=== PATIENT | female | born 2000 | race African-American/Black ===

== ENCOUNTER 2025-04-06 12:27 | Outpatient (OUT) | payer OTHER, MEDICAID, SELFPAY ==
--- NOTE | 2025-04-06 | US_ITS ---
The [address] [address] Patient Name: CHUY HAMILTON MRN: [id number] date: 2000 Sex: U Assigned Patient Location: Current Patient Location: Accession/Order Number: [id number] Exam Date: 04/06/2025 12:43 Report Date: 04/06/2025 13:20 At the request of: TYLER PETER MD Procedure: US pelvis w/ transvaginal EXAMINATION TYPE: US pelvis w/ transvaginal Grayscale, color scale Doppler, vascular duplex analysis of the bilateral ovaries DATE OF EXAM ORDERED: 04/06/2025 1:13 PM HISTORY: PELVIC PAIN R10.2, irregular menses COMPARISON: NONE TECHNIQUE: Realtime Transvaginal and Transabdominal imaging was performed. Transvaginal imaging was utilized to better evaluate the ovaries and the endometrial stripe. Grayscale, color scale Doppler, vascular duplex analysis of the bilateral ovaries was performed to assess blood flow. FINDINGS: The uterus measures 9.8 x 4.2 x 5.2 cm. The uterus is normal in echogenicity. Nabothian cysts are noted in the cervix measuring up to 6 mm in greatest dimension. Endometrium: Normal thickness and appearance. The endometrial measures 9 mm in thickness. Ovaries: The visualized right ovary is within normal limits for songraphic evaluation. There is a 2.3 cm dominant follicle in the right ovary. The left ovary is not visualized. Right Ovary measurements: 3.5 x 3.3 x 2.1 cm No abnormal adnexal mass is seen. No free fluid in the pelvic cul-de-sac. Vascular duplex analysis of the right ovary demonstrates normal blood flow without evidence of ovarian ischemia. US/US pelvis w/ transvaginal IMPRESSION: Normal pelvic ultrasound. No evidence of ovarian ischemia. The left ovary is not visualized. Impression dictated by: Marlon Phoenix M.D. 04/06/2025 1:20 PM Dictation Location: [place] [address] Electronically authenticated by: [id number] Y Date: 04/06/2025 13:20
== END 2025-04-06 12:28 | disposition home or self-care (01) ==
PROVIDERS: PCP Family Medicine; Visit Provider Family Medicine
DX: R10.9 Unspecified abdominal pain (principal); R10.2 Pelvic and perineal pain
CPT/HCPCS: 76830; 76856

== ENCOUNTER 2025-04-13 10:03 | Outpatient (OUT) | payer OTHER, MEDICAID, SELFPAY ==
--- OUTSIDE RECORDS SUMMARY | 2024-11-27 16:35 | XMS_ITS ---
Author Organization The [facility] in [place] Address [address] [place] [address] Care Team Providers Care Dial Screw Assembler Name Role Phone Tra Vigil Primary Care Provider REASON FOR VISIT Lab Results- Encounters Encounter Location Date Provider Diagnosis [facility] [address] [place] [address] 11/27/2024 Tra Vigil Plan Of Treatment No Information Progress Notes * Saroj TORRESOB:2000 (24 yo F)Acc No.[id number]:11/27/2024 Patient: Chris HEIKEAna Maria GONZALEZ :2000 A ge:24 Y S ex:Female Address:[address], [address], [place], [address] * true * Date: Generated for Melodyi irvin/Jordyg/eTransmitting on: 0 04/13/2025 10:05 AM EDT
--- OUTSIDE RECORDS SUMMARY | 2024-11-28 15:56 | XMS_ITS ---
Author Organization The [facility] in [place] Address [address] [place] [address] Care Team Providers Care Field Support Engineer Name Role Phone Tra Vigil Primary Care Provider REASON FOR VISIT labs Problems Problem Type SNOMED Code ICD Code Onset Dates Problem Status W/U Status Risk Notes Problem Laboratory test result abnormal (825314673) Abnormal laboratory test (R89.9) Active confirmed Encounters Encounter Location Date Provider Diagnosis [facility] [place] [address] [place] [address] 11/28/2024 Tra Vigil Abnormal laboratory test R89.9 Assessments Encounter Date Diagnosis (ICD Code) Assessment Notes Treatment Notes Treatment Clinical Notes Section Notes 11/28/2024 Abnormal laboratory test (ICD-10 - R89.9) Plan Of Treatment Pending Test Test Name Order Date GLYCOHEMOGLOBIN A1C 11/28/2024 INSULIN 11/28/2024 Progress Notes * DIPAKCHERIE Luis MiguelJenniOB:2000 (24 yo F)Acc No.[id number]:11/28/2024 Patient: Ana Maria WISEMNA :2000 A ge:24 Y S ex:Female Address:[address], [place], [address] Subjective: * Chief Complaints: * L abs * Medical History: * Surgical History: * Hospitalization/Major Diagno stic Procedure: * Medications: Objective: * Vitals: * Physical Examination: Assessment: * Assessment: 1. A bnormal laboratory test - R89.9 (Primary) Plan: * Treatment: * Procedure Codes: * true * Date: Generated for Clare bryan/Wanda/Adnie on: 0 04/13/2025 10:05 AM EDT
--- OUTSIDE RECORDS SUMMARY | 2024-12-05 06:23 | XMS_ITS ---
Author Organization The [facility] in [place] Address [address] [place] [address] Care Team Providers Care Continuous Linter Drier Operator Name Role Phone Musa Tra Primary Care Provider [phone] REASON FOR VISIT Lab questions Encounters Encounter Location Date Provider Diagnosis [facility] [address] [place] [address] 12/05/2024 Tra Vigil Abnormal laboratory test R89.9 Assessments Encounter Date Diagnosis (ICD Code) Assessment Notes Treatment Notes Treatment Clinical Notes Section Notes 12/05/2024 Abnormal laboratory test (ICD-10 - R89.9) Plan Of Treatment Pending Test Test Name Order Date CBC W/AUTO DIFF 12/05/2024 Progress Notes * Saroj TORRESOB:2000 (24 yo F)Acc No.[id number]:12/05/2024 Patient: Ana Maria WISEMAN :2000 A ge:24 Y S ex:Female Address:[facility] [address], [place], [address] Subjective: * Chief Complaints: * L ab questions * Medical History: * Surgical History: * Hospitalization/Major Diagno stic Procedure: * Medications: Objective: * Vitals: * Physical Examination: Assessment: * Assessment: 1. A bnormal laboratory test - R89.9 (Primary) Plan: * Treatment: * Procedure Codes: * true * Date: Generated for Printi ng/Faxing/eTransmitting on: 0 04/13/2025 10:05 AM EDT
--- OUTSIDE RECORDS SUMMARY | 2025-03-22 09:45 | XMS_ITS ---
Author Organization The [facility] in [place] Address [address] [place] [address] Care Team Providers Care Route Sales Trainee Name Role Phone Tra Vigil Primary Care Provider Allergies No Known Allergies REASON FOR VISIT menstrual issues, abdominal pain, ER last tuesday stomach pain, wants to see if there is any testing, menstration has been off late will be light last 2-3 days, hands and feet will go numb at times Medications Medication SIG (Take, Route, Frequency, Duration) Notes Start Date End Date Status Escitalopram Oxalate 10 MG Oral for 30 Days Active 27-1 MG 1 tablet Orally Once a day Active Magnesium Glycinate 100 MG as directed Orally Dosage Unknown Active Pristiq 50 MG 1 tablet Orally Once a day for 30 days 11/21/2024 Active Vitamin D3 10 MCG (400 UNIT) TAKE TWO CAPSULES BY MOUTH ONCE DAILY Oral for 30 Days Active Protonix 40 MG 1 tablet Orally Once a day for 30 days 11/21/2024 Active Abilify 2 MG 1 tablet Orally Once a day for 30 day(s) 11/21/2024 Active Social History Tobacco Use: Social History Observation Description Date Details (start date - stop date) Former Smoker NA - NA Tobacco Control (Standard) Question Answer Notes Tobacco use: Former smoker How long has it been since you last smoked? 3-6 months Problems Problem Type SNOMED Code ICD Code Onset Dates Problem Status W/U Status Risk Notes Problem Abdominal pain (30169666) Abdominal pain (R10.9) Active confirmed Problem Pain in pelvis (01610373) Pelvic pain (R10.2) Active confirmed Vital Signs Weight 249.0 lbs 03/22/2025 Height 62 in 03/22/2025 Blood pressure systolic 102 mm Hg 03/22/20 25 Blood pressure diastolic 66 mm Hg 025 BMI 45.54 kg/m2 03/22/2025 Encounters Encounter Location Date Provider Diagnosis [facility] [address] [place] [address] 03/22/2025 Tra Vigil Abdominal pain R10.9 and Pelvic pain R10.2 Assessments Encounter Date Diagnosis (ICD Code) Assessment Notes Treatment Notes Treatment Clinical Notes Section Notes 03/22/2025 Abdominal pain (ICD-10 - R10.9) 03/22/2025 Pelvic pain (ICD-10 - R10.2) Plan Of Treatment Medication Medication Name Sig Start Date Stop Date Notes Protonix 40 MG 1 tablet Orally Once a day for 30 days 11/06 Pending Test Test Name Order Date HEMOGLOBIN A1C (GLYCO) 03/22/2025 IRON, TOTAL 03/22/2025 LIPID PANEL (CHOL/TRIG/HDL/LDL) 03/22/20 25 Insulin Level 03/22/2025 FSH+LH+Prog+E2 03/22/2025 US ABD 03/22/2025 US PELVIS AND TRANSVAG 03/22/2025 THYROID PANEL (T4/TSH/FREE T3) CMP (COMP MET JONES) w/eGFR CKD-EPI 2024 CBC WITH DIFF 03/22/2025 Progress Notes * Saroj HAMILTONOB:2000 (24 yo F)Acc No.[id number]:03/22/2025 Progress Note Patient: Ana Maria WISEMAN Provider: Taz Vigil ([facility])MD :2000 A ge:24 Y S ex:Female Date:03/22/2025 Address[facility] [place] [id number] Check In:01:38 PM ESTCheck O ut:02:31 PM EST Subjective: * Chief Complaints: * 1 . Menstrual issues, abdominal pain. 2. ER last tuesday stomach pain. 3. Wants to see if there is any testing. 4. Menstration has been off late will be light last 2-3 days. 5. Hands and feet will go numb at times. 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 * ROS: E ENT: hearing changes d enies. v isual changes d enies.?non-healing mouth sores d enies. s wollen glands or neck lumps d enies. h oarseness d enies. s ore throat d enies. d ifficulty swallowing d enies. n ose bleeds d enies. n crissy congestion d enies. e ar ache d enies. e ar discharge?denies. r inging in ears d enies. l ight sensitivity d enies. e ye pain d enies. b lurring d enies. e ye irritation d enies. d ouble vision d enies.?vision loss d enies. G eneral/Constitutional: Sweats: D enies. F atigue d enies. S leep problems d enies. A norexia d enies. M alaise d enies. W eight loss d enies.?Fatigue or Weakness d enies. F ever or Chills d enies. C ardiovascular: Shortness of Breath w/lying flat d enies. L ightheadedness/dizziness d enies. C hest tightness/ heavy pressure d enies. S welling of legs, ankles, or feet d enies. W aking up with shortness of breath d enies. C hest pain denies. P alpitations d enies. W eight gain d enies. R espiratory: Chronic or frequent cough d enies. C oughing up blood?denies. D ifficulty breathing d enies. P roductive cough d enies. S noring?denies. S hortness of breath that awakens from sleep (PND) d enies. C hest pain d enies. S putum production d enies. W heezing d enies. M usculoskeletal: Joint pain d enies. J oint Fluid d enies. B ack pain d enies. K nee pain d enies. N polly pain d enies. J oint Stiffness d enies. M uscle cramps d enies. W eakness of muscles d enies. A rthritis d enies. M uscle aches d enies. P ain in shoulder(s) d enies. S wollen joints d enies. * Active Problem List F41.9 Anxiety Modified On:11/21/2024 Status:confirmed F32.9 Depression Modified On:11/21/2024 Status:confirmed Z00.00 Well adult Modified On:11/21/2024 Status:confirmed R06.83 Snoring Modified On:11/21/2024 Status:confirmed R20.2 Paresthesia Modified On:11/21/2024 Status:confirmed R89.9 Abnormal laboratory test Modified On:11/29/2024 Status:confirmed R10.9 Abdominal pain Modified On:03/22/2025 Status:confirmed R10.2 Pelvic pain Modified On:03/22/2025 Status:confirmed * Medical History: A nxiety, Depression. * Surgical History: D enies Past Surgical History. * Hospitalization/Major Diagno stic Procedure: D enies Past Hospitalization. * Family History: F ather: , Cerebral vascular accident, diagnosed with Unspecified heart disease, Unspecified essential hypertension. M other: alive, thyroid disease. B rother(s): alive, Heart Attack, diagnosed with Unspecified heart disease. S ister(s): alive. S on(s): alive. 4 brother(s) , 2 sister(s) - healthy. . * Social History: T obacco Use: T obacco Control (Standard) T obacco use: F ormer smoker H ow long has it been since you last smoked??3-6 months * Medications: T aking Abilify(ARIPiprazole) 2 MG Tablet 1 tablet Orally Once a day , Taking Escitalopram Oxalate 10 MG Tablet Oral , Taking Magnesium Glycinate 100 MG Capsule as directed Orally , Notes to Pharmacist: Dosage Unknown, Taking ( Vit-Fe Fumarate-FA) 27-1 MG Tablet 1 tablet Orally Once a day , Taking Pristiq(Desvenlafaxine Succinate ER) 50 MG Tablet Extended Release 24 Hour 1 tablet Orally Once a day , Taking Protonix(Pantoprazole Sodium) 40 MG Tablet Delayed Release 1 tablet Orally Once a day , Taking Vitamin D3 10 MCG (400 UNIT) Capsule TAKE TWO CAPSULES BY MOUTH ONCE DAILY Oral , Discontinued busPIRone HCl 10 MG Tablet TAKE ONE TABLET BY MOUTH TWICE DAILY (UPON AWAKENING AND AT 5-6PM) Oral , Medication List reviewed and reconciled with the patient * Allergies: N .K.D.A. Objective: * Vitals: W t:249.0lbs, Ht: 62 in, BP:102/66mm Hg, BMI:45.54Index, Ht-cm: 157.48 cm, Wt-k.95 kg. * Examination: P hysical Exam: GENERAL: w ell developed, well nourished, in no acute distress. HEAD: n ormocephalic/atraumatic. EYES: p upils equal, round and reactive to light, conjunctivae and sclerae normal. EARS: n o deformity or lesion of external ear, canals and TM appear normal bilaterally, TM's intact, not inflamed with normal light reflex, hearing grossly normal to conversational speech. NOSE: n o deformity, discharge, inflammation, or lesions.? MOUTH: m ucous membranes moist, normal oropharynx and posterior pharynx without lesions or exudates, tongue normal, dentition normal. NECK: n polly supple, no masses or palpable cervical nodes, trachea midline, thyroid without nodules, masses, tenderness, or enlargement. CHEST: n o chest wall deformity, no chest wall tenderness.? LUNGS: n ormal respiratory effort and clear to auscultation, no wheezes, rales, or rhonchi, good air exchange. CARDIO: r egular rate and rhythm, normal S1 and S2, nor murmur, rub, or gallop. PULSES: n ormal capillary refill. ABDOMEN: s oft, non-distended, non-tender, no masses. MUSCULOSKELETAL: n o deformity or scoliosis noted, normal range of motion, joints normal, no erythema, edema, effusion, or ecchymosis. EXTREMITY: n o clubbing, cyanosis, edema, or deformity with normal ROM in both upper and lower bilateral extremities. NEUROLOGIC: g rossly normal. SKIN: n o rashes, ulcerations, or suspicious lesions. LYMPH NODES: n o cervical adenopathy, nodes normal. MENTAL STATUS: a lert and oriented x3, normal mood and affect. Assessment: * Assessment: 1. A bdominal pain - R10.9 (Primary) 2 . P elvic pain - R10.2 ? Plan: * Treatment: ?Imaging: US PELVIS AND TRANSVAG* attn utuerus, ovaries 2.?Pelvic pain?LAB: FSH+LH+Prog+E2 ?Imaging: US ABD* Attn liver, gallplacddeer pa ncreas kidneys ?Imaging: US PELVIS AND TRANSVAG* attn utuerus, ovaries * Preventive Medicine: Screenings/Counseling: B MN ACTION PLAN Above Normal BMI Follow-up D ietary management education, guidance, and counseling * * Sign off status: Completed Visit Status: C HK (Check Out) true * Provider: Taz Vigil ([facility])MD Date: 0 03/22/2025 Generated for Printi ng/Faxing/eTransmitting on: 0 04/13/2025 10:05 AM EDT History and Physical Notes * HPI (History of Present Illness) Category Sub-Category Detail Notes Category Not es General periods - ligfhtere - 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 be 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 stil with pain - some constipation Examination Category Sub-Category Detail Notes Category Not es Physical Exam GENERAL: well developed, well nourished, in no acute distress HEAD: normocephalic/atraum atic EYES: pupils equal, round and reactive to light, conjunctivae and sclerae normal EARS: no deformity or lesi on of external ear, canals and TM appear normal bilaterally, TM's intact, not inflamed with normal light reflex, hearing grossly normal to conversational speech NOSE: no deformity, discha rge, inflammation, or lesions MOUTH: mucous membranes yvonne st, normal oropharynx and posterior pharynx without lesions or exudates, tongue normal, dentition normal NECK: neck supple, no mass es or palpable cervical nodes, trachea midline, thyroid without nodules, masses, tenderness, or enlargement CHEST: no chest wall deform ity, no chest wall tenderness LUNGS: normal respiratory e ffort and clear to auscultation, no wheezes, rales, or rhonchi, good air exchange CARDIO: regular rate and rhy thm, normal S1 and S2, nor murmur, rub, or gallop PULSES: normal capillary ref ill ABDOMEN: soft, non-distended, non-tender, no masses RECTAL: MUSCULOSKELETAL: no deformity or scol iosis noted, normal range of motion, joints normal, no erythema, edema, effusion, or ecchymosis EXTREMITY: no clubbing, cyanosi s, edema, or deformity with normal ROM in both upper and lower bilateral extremities NEUROLOGIC: grossly normal SKIN: no rashes, ulceratio ns, or suspicious lesions LYMPH NODES: no cervical adenopat hy, nodes normal MENTAL STATUS: alert and oriented x 3, normal mood and affect
--- OUTSIDE RECORDS SUMMARY | 2025-04-08 09:44 | XMS_ITS ---
Author Organization The [facility] in [place] Address [address] [place] [address] Care Team Providers Care Hand Pattern Marker Name Role Phone Tra Vigil Primary Care Provider REASON FOR VISIT us pelvis Medications Medication SIG (Take, Route, Fr equency, Duration) Notes Start Date End Date Status Meloxicam 15 MG 1 tablet Orally Once a day for 10 days 04/09/2025 Active Encounters Encounter Location Date Provider Diagnosis [facility] [address] [place] [address] 04/08/2025 Tra Vigil Plan Of Treatment Medication Medication Name Sig Start Date Stop Date Notes Meloxicam 15 MG 1 tablet Orally Once a day for 10 days 09/2024 Progress Notes * Saroj HAMLITONOB:2000 (24 yo F)Acc No.[id number]:04/08/2025 Patient: Chris HEIKEAna Maria GONZALEZ :2000 A ge:24 Y S ex:Female Address:[address], [address] * Refills Start Meloxicam Tablet, 15 MG, Orally, 10 Tablet, 1 tablet, Once a day, 10 days, Refills=0 * true * Date: Generated for Clare ng/Fajennyg/eTransmitting on: 0 04/13/2025 10:05 AM EDT
--- NOTE | 2025-04-13 10:05 | US_ITS ---
[place] [id number] Patient Name: CHUY HAMILTON MRN: [id number] date: 2000 Sex: F Assigned Patient Location: [place] Current Patient Location: [place] Accession/Order Number: [id number] Exam Date: 04/13/2025 10:09 Report Date: 04/13/2025 10:55 At the request of: TYLER PETER MD Procedure: US right upper quadrant LIMITED ABDOMINAL ULTRASOUND: CLINICAL HISTORY: ABDOMINAL PAIN R10.9 COMPARISON: None TECHNIQUE: Grayscale and color Doppler images of the right upper quadrant organs were obtained. FINDINGS: Pancreas: Visualized portions appear unremarkable. Liver: Unremarkable. Gallbladder: Cholelithiasis. No wall thickening. Negative Sal sign. CBD: 4.6 mm. RT KIDNEY: No Hydronephrosis US/US right upper quadrant IMPRESSION: CHOLELITHIASIS WITHOUT SONOGRAPHIC EVIDENCE OF ACUTE CHOLECYSTITIS.. Impression dictated by: Nahum Germain Jr., D.O. 04/13/2025 10:55 AM Dictation Location: [place] [address] Electronically authenticated by: [id number] Date: 04/13/2025 10:55
--- OUTSIDE RECORDS SUMMARY | 2025-04-13 10:05 | XMS_ITS | Encounter Summary ---
Author Organization [facility] Address [id number] [address] [place] [address] Care Team Providers Care Bottle Booth Attendant Name Role Phone Ismael Vigil MD Primary Care Provider [phone] Encounter Details Date Type Department Care Team (Late st Contact Info) Description 10/16/2020 Orders Only [facility] [address] [place] [address] Juliette Hayes, [facility] [address], [place] [id number] Social History Tobacco Use Types Packs/Day Years Used Date Smoking Tobacco: Every Day Vaping/E-cigarettes Started: 2016 Smokeless Tobacco: Never Alcohol Use Standard Drinks/Week Comments Yes 0 (1 standard drink = 0.6 oz pur e alcohol) rarely PHQ-2 Answer Date Recorded PHQ-2 Score 23 10/15/2020 Childcare Answer Date Recorded Childcare Unknown 10/09/2020 Employment Answer Date Recorded Employment Unknown 10/09/2020 Purpose - Life Answer Date Recorded Purpose and direction in life Unknown Comments No Sex and Gender Information Value Date Recorded Sex Assigned at Not on file Legal Sex Female 11:59 AM EDT Gender Identity Not on file Sexual Orientation Straight 07/10/2022 12 :24 PM EST COVID-19 Exposure Response Date Recorded In the last month, have you been in contact with someone who was confirmed or suspected to have Coronavirus / COVID-19? No / Unsure 10/15/2020 3:07 PM EST documented as of this encounter Plan of Treatment Not on file documented as of this encounter Visit Diagnoses Not on filedocumented in this encounter Additional Health Concerns Infection Onset Date Last Indicated Resolved Time COVID-19 Rule-Out 08/05/2023 08/05/2023 08/05/2023 8:39 PM EST COVID-19 Rule-Out 07/20/2024 07/20/2024 07/20/2024 5:23 PM EST Assessment Noted Time PHQ-9 Depression Total Score: 23 021 3:00 PM EST A Body Mass Index follow-up plan has been documented for the patient 10/15/2020 4:03 PM EST documented as of this encounter Care Teams Bottle Booth Attendant Relationship Specialty Start Date End Date Ismael Vigil MD [address] [place] [address] PCP - General Family Medicine 03/15/25 documented as of this encounter
--- OUTSIDE RECORDS SUMMARY | 2025-04-13 10:05 | XMS_ITS | Encounter Summary ---
Author Organization [facility] Address [facility] [id number] [address] [place] [address] Care Team Providers Care Milk House Worker Name Role Phone Ismael Vigil MD Primary Care Provider [phone] Reason for Visit * Reason Comments Med Refill Encounter Details Date Type Department Care Team (Late st Contact Info) Description 11/18/2024 Refill [facility] [address] [place] [address] Juliette Hayes, KELP GATHERER-CLOTHESPIN MACHINE OPERATOR [address] [place], [place] [id number] Social History Tobacco Use Types Packs/Day Years Used Date Smoking Tobacco: Former Vaping/E-cigarettes Started: 2016 Smokeless Tobacco: Never Comments:pt states she quit around 8 weeks gestation Alcohol Use Standard Drinks/Week Comments Not Currently 0 (1 standard drink = 0.6 oz pur e alcohol) Overall Financial Resource Strain (CARDIA) Answe r Date Recorded How hard is it for you to pa y for the very basics like food, housing, medical care, and heating? Not very hard 09/22/2022 PHQ-2 Answer Date Recorded Total Score 0 09/22/2022 PRAPARE - Transportation Answer Date Re corded In the past 12 months, has l ack of transportation kept you from medical appointments or from getting medications? No 05/09 In the past 12 months, has l ack of transportation kept you from meetings, work, or from getting things needed for daily living? No 06/05/2022 [place] Depression Scale Answer Date Recorded [place] Depression Scale Total 6 09/22/2022 The thought of harming myself has occurred to me . Never 09/22/2022 Childcare Answer Date Recorded Do problems getting child ca re make it difficult for you to work or study? No 09/22/2022 Employment Answer Date Recorded Employment Unknown 10/09/2020 Hunger Screening Answer Date Recorded Within the past 12 months we worried whether our food would run out before we got money to buy more. Never True 07/20/2024 Within the past 12 months th e food we bought just didn't last and we didn't have money to get more. Never True 07/20/2024 Purpose - Life Answer Date Recorded Purpose and direction in life Unknown Comments No Sex and Gender Information Value Date Recorded Sex Assigned at Not on file Legal Sex Female 11:59 AM EDT Gender Identity Not on file Sexual Orientation Straight 07/10/2022 12 :24 PM EST documented as of this encounter Plan of Treatment Not on file documented as of this encounter Visit Diagnoses Not on filedocumented in this encounter Additional Health Concerns Assessment Noted Time PHQ-9 Depression Total Score: 0 09/22/19 23 11:17 AM EST A Body Mass Index follow-up plan has been documented for the patient 07/24/2024 10:10 AM EST documented as of this encounter Care Teams Milk House Worker Relationship Specialty Start Date End Date Ismael Vigil MD [address] [place] [address] PCP - General Family Medicine 03/15/25 documented as of this encounter
--- OUTSIDE RECORDS SUMMARY | 2025-04-13 10:05 | XMS_ITS | Clinical Summary ---
Author Organization [email or web address] s tem Address [id number] [address] [place] [address] Care Team Providers Care Unit Director Name Role Phone Ismael Vigil MD Primary Care Provider [phone] Allergies No known active allergies Medications FLUoxetine (PROzac) 20 mg capsule Take 1 capsule (20 mg total) by mouth in the morning. 30 capsule 5 Active hydrOXYzine (ATARAX) 25 mg tablet Take 1 tablet (25 mg total) by mouth 3 (three) times a day as needed for itching. 30 tablet 5 Active escitalopram (LEXAPRO) 5 mg tablet Take 1 tablet (5 mg total) by mouth in the morning. Active omeprazole (PriLOSEC) 20 mg capsule Take 2 capsules (40 mg total) by mouth in the morning. 60 capsule 5 Active ondansetron ODT (ZOFRAN ODT) 4 mg disintegrating tablet Dissolve 1 tablet (4 mg total) on tongue every 8 (eight) hours as needed for nausea for up to 10 doses. 10 tablet 5 Active sucralfate (CARAFATE) 1 gram tablet Take 1 tablet (1 g total) by mouth in the morning and 1 tablet (1 g total) at noon and 1 tablet (1 g total) in the evening and 1 tablet (1 g total) before bedtime. Do all this for 7 days. 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 [address] [facility] [place] [address] Shivam Terry MD Abdominal pain, unspecified abdominal location (Primary Dx) Discharge Disposition: Home 03/16/2025 Travel 03/15/2025 9:26 PM EDT - 03/15/2025 11:[address] [facility] - Emergency [address] [place] [address] Raffaele Beckman MD Upper abdominal pain (Primary Dx) Discharge Disposition: Home 03/15/2025 Travel 01/15/2025 Travel from Last 3 Months Immunizations Immunization Administration Dates Next Due DTaP 11/28/2007, 4,03/18/2003,2002,2002 HPV Quadrivalent 04/20/2016 Hep B / HIB 01/15/2003,2002 Hepatitis A 11/28/2007 Hepatitis B 2002 Hib (PRP-T) 12/11/2003,03/18/2003 IPV 11/28/2007, 3,01/15/2003,2002 Influenza, Injectable, quadr ivalent (PF) 06/04/2022 MMR 11/28/2007,12/11/2003 Pneumococcal Conjugate 03/18/2003,01/15/2003 Varicella 11/28/2007,12/11/2003 Family History Medical History Relation Name Comments Heart attack Father Heart disease Father Hypertension Father Lung cancer Maternal Grandmother Anxiety disorder Mother Goiter Mother Hypertension Mother Thyroid disease Mother Diabetes Paternal Grandmother Blood Clots Neg Hx Breast cancer Neg Hx Colon cancer Neg Hx Ovarian cancer Neg Hx Uterine cancer Neg Hx Relation Name Status Comments Father Maternal Grandmother Mother Alive Paternal Grandmother Social History Tobacco Use Types Packs/Day Years Used Date Smoking Tobacco: Former Vaping/E-cigarettes Started: 2017 Smokeless Tobacco: Never Tobacco Cessation:Counseling Given: Not Answered Comments:pt states she quit around 8 weeks [...] things needed for daily living? No 06/05/2022 [place] Depression Scale Answer Date Recorded [place] Depression Scale Total 6 09/22/2022 The thought [...] got money to buy more. Never True 03/16/2025 Within the past 12 months th e food we bought just didn't last and we didn't have money to get more. Never True 03/16/2025 Purpose - Life Answer Date Recorded Purpose and direction in life Unknown Comments No Sex and Gender Information Value Date Recorded Sex Assigned at Not on file Legal Sex Female 11:59 AM EDT Gender Identity Not on file Sexual Orientation Straight 07/10/2022 12 :24 PM EST Last Filed Vital Signs Vital Sign Reading Time Taken Comments Blood Pressure 103/61 03/16/2025 4:44 AM EDT Pulse 68 03/16/2025 4:44 AM EDT Temperature 36.9 C (98.4 F) 03/16/2025 3:23 AM EDT Respiratory Rate 16 03/15/2025 11:0 3 PM EDT Oxygen Saturation 98% 03/16/2025 4:45 AM EDT Inhaled Oxygen Concentration - - Weight 112.1 kg (247 lb 1.6 oz) 03/16/2025 3:23 AM EDT Height 157.5 cm (5' 2 ) 03/16/2025 3:23 AM EDT Body Mass Index 45.2 03/16/2025 3:23 AM EDT Plan of Treatment Health Maintenance Due Date Last Done Comments DTaP,Tdap and Td Vaccines (6 - Tdap) 2013 11/28/2007, 12/11/2003, 03/18/2003, Additional history exists Pap Smear 2023 Depression Screening 09/22/2023 09/22/2022, 09/22/19 23 Chlamydia Screening 02/20/2025 02/21/2024, Influenza Vaccine 04/08/2025 06/04/2022 Adult BMI Follow Up Plan 07/24/2025 07/24/2024 Adult BMI Screening 03/16/2026 03/16/2025 Tobacco Screening 03/16/2026 03/16/2025 Medical Devices Not on file Procedures Procedure Name Priority Date/Time Associated Diagnosis Comments CT ABDOMEN AND PELVIS W CONT STAT 03/16/2025 4:29 AM EDT EXTRA TUBES SST TOP Routine 03/16/2025 3 :31 AM EDT EXTRA TUBES BLUE TOP Routine 03/16/2025 3:31 AM EDT EXTRA TUBES Routine 03/16/2025 3:31 AM EDT LIPASE STAT 03/16/2025 3:31 AM EDT COMPREHENSIVE METABOLIC PANEL STAT 03/16/2025 3:31 AM EDT CBC WITH AUTO DIFFERENTIAL STAT 03/16/2025 3:31 AM EDT XR ABDOMEN AP 1 VW STAT 03/15/2025 11 :05 PM EDT POCT , URINE (NUCG) Routine 03/15/2025 9:51 PM EDT POCT NURSING URINE MACROSCOPIC UA Routine 03/15/2025 9:49 PM EDT ER EXTRA URINE MARBLE STAT 03/15/2025 9:34 PM EDT ER EXTRA URINE CULTURE STAT 9:34 PM EDT ER EXTRA URINE STAT 03/15/2025 9:34 PM EDT CHLAMYDIA/GC BY PCR NICK SWAB Routine 02/21/2024 9:10 AM EDT Vaginal discharge Vaginal odor from Last 3 Months or Most Recently Relevant to Health Maintenance Results * CT abdomen and pelvis with contrast (03/16/2025 4:29 AM EDT) Anatomical Region Laterality Modality Body, Abdomen, Body Covera N/A Compu harry Tomography 03/16/2025 4:31 AM EDT Narrative 03/16/2025 4:33 AM EDT History: Abdominal pain Technique: Contiguous axial images through the abdomen pelvis were obtained following the administration of intravenous contrast material. Automated exposure control was utilized. Comparison: None Findings: There is no evidence of any hepatic, splenic, adrenal, renal, pancreatic, or gallbladder abnormalities. No abdominal or retroperitoneal mass or adenopathy are seen. No pelvic masses, adenopathy, or fluid collections are identified. Limited images of the lung bases are unremarkable. Impression: Normal CT abdomen and pelvis. All CT scans at this facility use dose modulation, iterative reconstruction, and/or weight based dosing when appropriate to reduce radiation dose to as low as reasonably achievable Finalized by Greyson Duong MD on 03/16/2025 4:33 AM Procedure Note Greyson Duong MD - 03/16/2025 History: Abdominal pain Technique: Contiguous axial images through the abdomen pelvis wereobtained following the administration of intravenous contrast material.Automated exposure control was utilized. Comparison: None Findings: There is no evidence of any hepatic, splenic, adrenal, renal,pancreatic, or gallbladder abnormalities. No abdominal or retroperitonealmass or adenopathy are seen. No pelvic masses, adenopathy, or fluid collections are identified. Limited images of the lung bases are unremarkable. Impression: Normal CT abdomen and pelvis. All CT scans at this facility use dose modulation, iterativereconstruction, and/or weight based dosing when appropriate to reduceradiation dose to as low as reasonably achievable Finalized by Greyson Duong MD on 03/16/2025 4:33 AM us Shivam Terry MD IMG CT ORDERABLES Final Res ult * SST TOP (03/16/2025 3:31 AM EDT) Extra Tube Auto Resulted 03/16/2025 5:01 AM EDT [facility] Blood Venous blood / Unknown 03/16/2025 3:31 AM EDT 03/16/2025 3:49 AM EDT Shivam Terry MD LAB BLOOD ORDERABLES Final Result [address] [place] [address], [place] * Light Blue Top (03/16/2025 3:31 AM EDT) Extra Tube Auto Resulted 03/16/2025 5:01 AM EDT [facility] Blood Venous blood / Unknown 03/16/2025 3:31 AM EDT 03/16/2025 3:49 AM EDT us Shivam Terry MD LAB BLOOD ORDERABLES Final Result [address] [place] [address], [place] * (ABNORMAL) CBC auto differential (03/16/2025 3:31 AM EDT) WBC 10.6 4 - 11 x10E9/L 03/16/2025 3:58 AM EDT [facility] RBC Count 4.46 3.8 - 5.2 X10E12/L 03/16/2025 3:58 AM EDT [facility] Hemoglobin 13.7 11.7 - 15.5 g/dL 03/16/2025 3:58 AM EDT [facility] Hematocrit 39.9 35 - 47 % 03/16/2025 3:58 AM EDT [facility] MCV 90 80 - 100 fL 03/16/2025 3:58 AM EDT [facility] MCH 30.8 27 - 34 pg 03/16/2025 3:58 AM EDT [facility] MCHC 34.4 32 - 36 g/dL 03/16/2025 3:58 AM EDT [facility] RDW 13.8 11.5 - 15 % 03/16/2025 3:58 AM EDT [facility] Platelet Count 285 150 - 450 X10E9/L 03/16/2025 3:58 AM EDT [facility] MPV 9.8 7 - 12 fL 03/16/2025 3:58 AM EDT [facility] Neutrophils % 85.7 % 03/16/2025 3:58 AM EDT [facility] Lymphocytes % 9.3 % 03/16/2025 3:58 AM EDT [facility] Monocytes % 4.0 % 03/16/2025 3:58 AM EDT [facility] Eosinophils % 0.2 % 03/16/2025 3:58 AM EDT [facility] Basophils % 0.8 % 03/16/2025 3:58 AM EDT [facility] Neutrophils Absolute (A) 9.1(H) 1.5 - 6.6 10*3/uL 03/16/2025 3:58 AM EDT [facility] Lymphocytes Absolute 1.0 1.0 - 3.5 10*3/uL 03/16/2025 3:58 AM EDT [facility] Monocytes Absolute 0.4 0.0 - 0.9 10*3/uL 03/16/2025 3:58 AM EDT [facility] Eosinophils Absolute 0.0 0.0 - 0.4 10*3/uL 03/16/2025 3:58 AM EDT [facility] Basophils Absolute 0.1 0.0 - 0.2 10*3/uL 03/16/2025 3:58 AM EDT [facility] Differential Type AUTOMATED DIFFERENTIAL 03/16/2025 3:58 AM EDT [facility] Blood Venous blood / Unknown Venipuncture / Unknown 03/16/2025 3:31 AM EDT 03/16/2025 3:49 AM EDT us Shivam Terry MD LAB BLOOD ORDERABLES Final Result Performing Organization Address City/[facility]/ZIP Co de Phone Number [address] [place] [address], [place] * Lipase (03/16/2025 3:31 AM EDT) LIPASE 27 17 - 40 U/L 03/16/2025 4:04 AM EDT [facility] Blood Venous blood / Unknown Venipuncture / Unknown 03/16/2025 3:31 AM EDT 03/16/2025 3:49 AM EDT Shivam Terry MD LAB BLOOD ORDERABLES Final Result Performing Organization Address City/[facility]/ZIP Co de Phone Number [address] [place] [address], [place] * (ABNORMAL) Comprehensive metabolic panel (03/16/2025 3:31 AM EDT) SODIUM 135 134 - 146 mmol/L 03/16/2025 4:06 AM EDT [facility] POTASSIUM 3.6 3.5 - 5.0 mmol/L 03/16/2025 4:06 AM EDT [facility] CHLORIDE 103 98 - 109 mmol/L 03/16/2025 4:06 AM EDT [facility] CARBON DIOXIDE 23 22 - 32 mmol/L 03/16/2025 4:06 AM EDT [facility] ANION GAP 9 5 - 15 mmol/L 03/16/2025 4:06 AM T [facility] BLOOD UREA NITROGEN 12 5 - 23 mg/dL 03/16/2025 4:06 AM EDT [facility] CREATININE 0.78 0.40 - 1.00 mg/dL 03/16/2025 4:06 AM EDT [facility] Comment:METHOD TRACEABLE TO IDMD STANDARD GLUCOSE 158(H) 65 - 99 mg/dL 03/16/2025 4:06 AM EDT [facility] CALCIUM 9.5 8.5 - 10.5 mg/dL 03/16/2025 4:06 AM T [facility] TOTAL PROTEIN 8.8(H) 6.0 - 8.0 g/dL 03/16/2025 4:06 AM T [facility] ALBUMIN 4.6 3.2 - 5.3 g/dL 03/16/2025 4:06 AM T [facility] ALKALINE PHOSPHATASE 92 39 - 130 U/L 03/16/2025 4:06 AM EDT [facility] AST 158(H) <=41 U/L 03/16/2025 4:06 AM EDT [facility] ALT 145(H) <=31 U/L 03/16/2025 4:06 AM T [facility] BILIRUBIN,TOTAL 1.1 0.3 - 1.2 mg/dL 03/16/2025 4:06 AM T [facility] EGFR Non-Race Dependent >90 >=60 ml/min/1.7 3sq.m 03/16/2025 4:06 AM [facility] Comment: eGFR not reported due to non-numeric value for Creatinine. Reported eGFR is based on the CKD-EPI 2020 equation that does not use a race coefficient. Blood Venous blood / Unknown Venipuncture / Unknown 03/16/2025 3:31 AM EDT 03/16/2025 3:49 AM EDT us Shivam Terry MD LAB BLOOD ORDERABLES Final Result [facility] [address] [place] [address], [place] * X-ray abdomen ap 1 view (03/15/2025 11:05 PM EDT) Anatomical Region Laterality Modality Body, Abdomen N/A Computed Radiogr aphy 03/15/2025 11:4 0 PM EDT Narrative 03/15/2025 11:41 PM EDT History: Abdominal pain Exam/Technique: Supine views of the abdomen were obtained. Comparison: None Findings: Gas and stool are seen throughout in a nonspecific manner. There are no dilated loops to suggest obstruction or ileus. No abnormal amounts of stool are identified. No free intraperitoneal air seen. IMPRESSION: Normal abdomen. Finalized by Greyson Duong MD on 03/15/2025 11:41 PM Procedure Note Greyson Duong MD - 03/15/2025 History: Abdominal pain Exam/Technique: Supine views of the abdomen were obtained. Comparison: None Findings: Gas and stool are seen throughout in a nonspecific manner.There are no dilated loops to suggest obstruction or ileus. No abnormalamounts of stool are identified. No free intraperitoneal air seen. IMPRESSION: Normal abdomen. Finalized by Greyson Duong MD on 03/15/2025 11:41 PM us Raffaele Beckman MD IMG DIAGNOSTIC IMAGING ORDERABL ES Final Result * POCT , urine (03/15/2025 9:51 PM EDT) POC Urine Negative Negative, Indeterminate 03/15/2025 9:46 PM EDT [facility] Urine 03/15/2025 9:51 PM EDT 03/15/2025 9:46 PM EDT us Raffaele Beckman MD POINT OF CARE TEST ORDERABLES F inal Result Performing Organization Address City/[facility]/ZIP Co de Phone Number [address] [place] [address], [place] * (ABNORMAL) POCT Nursing Urine Macroscopic UA (03/15/2025 9:49 PM EDT) Pathologist [facility] POC Urine Specific [place] 1.025 1.010, 1.015, 1.020, 1.025 03/15/2025 9:40 PM EDT [facility] POC Urine Leukocyte Esterase Negative Negative 03/15/2025 9:40 PM EDT [facility] POC Urine Nitrite Negative Negative 03/15/2025 9:40 PM EDT [facility] POC Urine pH 7.0 5.0, 6.0, 6.5, 7.0, 7.5, 8.0, 8.5, 5.5 03/15/2025 9:40 PM EDT [facility] POC Urine Protein Trace(A) Negative 03/15/2025 9:40 PM EDT [facility] POC Urine Glucose Negative Negative 03/15/2025 9:40 PM EDT [facility] POC Urine Ketones Negative Negative 03/15/2025 9:40 PM EDT [facility] POC Urine Urobilinogen 1.0 E.U./dL 03/15/2025 9:40 PM EDT [facility] POC Urine Bilirubin Negative Negative 03/15/2025 9:40 PM EDT [facility] POC Urine Blood/HGB Trace(A) Negative 03/15/2025 9:40 PM EDT [facility] Urine 03/15/2025 9:4 9 PM EDT 03/15/2025 9:40 PM EDT us Raffaele Beckman MD POINT OF CARE TEST ORDERABLES F inal Result [address] [place] [address], [place] * Extra Urine [place] (03/15/2025 9:34 PM EDT) Extra Tube Auto Resulted 03/15/2025 11:01 PM EDT [facility] Urine Urine specimen collection, clean catch / Unknown 03/15/2025 9:34 PM EDT 03/15/2025 10:18 PM EDT us Raffaele Beckman MD URINE ORDERABLES Final Result Performing Organization Address City/[facility]/ZIP Co de Phone Number [address] [place] [address], [place] * Extra Urine Culture (03/15/2025 9:34 PM EDT) Extra Tube Auto Resulted 03/15/2025 11:01 PM EDT [facility] Urine Urine specimen collection, clean catch / Unknown 03/15/2025 9:34 PM EDT 03/15/2025 10:18 PM EDT us Raffaele Beckman MD URINE ORDERABLES Final Result Performing Organization Address City/[facility]/ZIP Co de Phone Number [address] [place] [address], [place] * Extra Urine (03/15/2025 9:34 PM EDT) Extra Tube Auto Resulted 03/15/2025 11:01 PM EDT [facility] Urine Urine / Unknown 03/15/2025 9 :34 PM EDT 03/15/2025 10:18 PM EDT us Raffaele Beckman MD URINE ORDERABLES Final Result Performing Organization Address City/[facility]/ZIP Co de Phone Number [address] [place] [address], [place] * Chlamydia/GC by PCR Nick Swab (02/21/2024 9:10 AM EDT) Specimen source CERVIX 11:14 PM EDT CHERELLE Chlamydia DNA PCR Negative Negative^N egative 02/22/2024 2:06 PM EDT [facility] Comment: Chlamydia trachomatis not detected by nucleic acid amplification. This does not exclude the possibility of infection because results are dependent on adequate specimen collection. Gonorrhea DNA PCR Negative Negative^N egative 02/22/2024 2:06 PM EDT [facility] Comment: Neisseria gonorrhoeae not detected by nucleic acid amplification. This does not exclude the possibility of infection because results are dependent on adequate specimen collection. GENS 02/21/2024 9:10 AM EDT 02/21/2024 11:14 PM EDT us Sandra Solorzano MD MICROBIOLOGY - GENERAL ORDERAB LES Final Result [facility] [address], [address] [place] [address] from Last 3 Months or Most Recently Relevant to Health Maintenance Insurance [facility] MEDICAID [employer] Advance Directives * Full Code (Latest Code Status on File) Date Activated Date Inactivated Comments 07/10/2022 7:12 PM 07/13/2022 9:38 PM * Full Code Date Activated Date Inactivated Comments 07/10/2022 2:23 PM 07/10/2022 5:51 PM Care Teams Unit Director Relationship Specialty Start Date End Date Ismael Vigil MD [address] [place] [address] PCP - General Family Medicine 03/15/25
--- OUTSIDE RECORDS SUMMARY | 2025-04-13 10:05 | XMS_ITS | Encounter Summary ---
Author Organization [employer] Address [id number] [address] 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 No 06/05/2022 [place] Depression Scale Answer Date Recorded [place] Depression Scale Total 6 09/22/2022 The thought [...] documented as of this encounter Care Teams Cold Working Inspector Relationship Specialty Start Date End Date Ismael Vigil MD [address] [place] [address] PCP - General Family Medicine 03/15/25 documented as of this encounter
--- OUTSIDE RECORDS SUMMARY | 2025-04-13 10:05 | XMS_ITS | Encounter Summary ---
Author Organization [facility] tem Address [id number] [address] [place] [address] Care Team Providers Care Machine Pan Greaser Name Role Phone Ismael Vigil MD Primary Care Provider [phone] Encounter Details Date Type Department Care Team (Late st Contact Info) Description 07/08/2022 Orders Only [facility]- Medicine at [facility] [address] [place] [id number] Henna Garcia RN Gestational diabetes mellitus (GDM) in third trimester, gestational diabetes method of control unspecified (Primary Dx) Social History Tobacco Use Types Packs/Day Years Used Date Smoking Tobacco: Former Vaping/E-cigarettes Started: 2016 Smokeless Tobacco: Never Comments:pt states she quit around 8 weeks gestation Alcohol Use Standard Drinks/Week Comments Not Currently 0 (1 standard drink = 0.6 oz pur e alcohol) PHQ-2 Answer Date Recorded Total Score 0 11/12/2020 PRAPARE - Transportation Answer Date Re corded In the past 12 months, has l ack of transportation kept you from medical appointments or from getting medications? No 05/09 In the past 12 months, has l ack of transportation kept you from meetings, work, or from getting things needed for daily living? No 06/05/2022 Childcare Answer Date Recorded Childcare Unknown 10/09/2020 Employment Answer Date Recorded Employment Unknown 10/09/2020 Purpose - Life Answer Date Recorded Purpose and direction in life Unknown Comments Yes Sex and Gender Information Value Date Recorded Sex Assigned at Not on file Legal Sex Female 11:59 AM EDT Gender Identity Not on file Sexual Orientation Straight 07/10/2022 12 :24 PM EST COVID-19 Exposure Response Date Recorded In the last month, have you been in contact with someone who was confirmed or suspected to have Coronavirus / COVID-19? No / Unsure 07/10/2022 6:22 PM EST documented as of this encounter Functional Status documented as of this encounter Plan of Treatment Not on file documented as of this encounter Procedures Procedure Name Priority Date/Time Associated Diagnosis Comments GLUCOSE RANDOM OR FASTING Routine 07/08/2022 Gestational diabetes mellitus (GDM) in third trimester, gestational diabetes method of control unspecified documented in this encounter Results * Glucose random or fasting- POCT (07/08/2022) External Glucose Fasting Or Random (Fbs) 75 MANUALLY TRANSCRIBED RESULTS 07/08/2022 Devika Funk TURRET LATHE SET UP OPERATOR-CCU NURSE LAB BLOOD ORDERABLES nal Result MANUALLY TRANSCRIBED RESULTS documented in this encounter Visit Diagnoses Diagnosis Gestational diabetes mellitus (GDM) in third trimester, gestational diabetes method of control unspecified- Primary documented in this encounter Additional Health Concerns Infection Onset Date Last Indicated Resolved Time COVID-19 Rule-Out 08/05/2023 08/05/2023 08/05/2023 8:39 PM EST COVID-19 Rule-Out 07/20/2024 07/20/2024 07/20/2024 5:23 PM EST Assessment Noted Time PHQ-9 Depression Total Score: 0 11/13/19 21 3:00 PM EDT A Body Mass Index follow-up plan has been documented for the patient 10/15/2020 4:03 PM EST documented as of this encounter Care Teams Machine Pan Greaser Relationship Specialty Start Date End Date Ismael Vigil MD [address] [place] [address] PCP - General Family Medicine 03/15/25 documented as of this encounter
--- OUTSIDE RECORDS SUMMARY | 2025-04-13 10:05 | XMS_ITS | Patient Health Record ---
Author Organization [facility] in [place] Address [address] [place] [address] Care Team Providers Care Flexo Folder Gluer Operator Name Role Phone Tra Peter Primary Care Provider Allergies No Known Allergies Results Component Value Reference Range Notes CORTISOL Reviewed date:11/26/2024 02:02:22 PM Interpretation: Performing Lab:[facility], [place]. [address] PH:[phone] Notes/Report: CORTISOL 19.9 Due to the diurnal variation of cortisol levels in normal subjects, all cortisol measurements should be referenced to the time of day of sample collection. AM Cortisol Age>=6 6.7-22.4 ug/dL PM Cortisol Age>=6 <10 ug/dL ----- PERFORMED AT [facility] [address], [place] [address] US pelvis w/ transvaginal Reviewed date:04/08/2025 01:45:00 PM Interpretation: Performing Lab: Notes/Report: Source Facility: [facility] [address] [place] [address] Ultrasound Report Signed Patient: ANA MARIA HAMILTON MR#: [id number] : 2000 Acct:[id number] Age/Sex: 24 / U ADM Date: 04/06/25 Loc: US Attending Dr: Tyler Peter M.D. Ordering Physician: Tyler Peter M.D. Date of Service: 04/06/25 Procedure(s): US pelvis w/ transvaginal Accession Number(s): [id number] cc: Tyler Peter M.D. [address] [address] Patient Name: ANA MARIA HAMILTON MRN: [id number] date: 2000 Sex: U Assigned Patient Location: Current Patient Location: US Accession/Order Number: [id number] Exam Date: 04/06/2025 12:43 Report Date: 04/06/2025 13:20 At the request of: TYLER PETER MD Procedure: US pelvis w/ transvaginal EXAMINATION TYPE: US pelvis w/ transvaginal Grayscale, color scale Doppler, vascular duplex analysis of the bilateral ovaries DATE OF EXAM ORDERED: 04/06/2025 1:13 PM HISTORY: PELVIC PAIN R10.2, irregular menses COMPARISON: NONE TECHNIQUE: Realtime Transvaginal and Transabdominal imaging was performed. Transvaginal imaging was utilized to better evaluate the ovaries and the endometrial stripe. Grayscale, color scale Doppler, vascular duplex analysis of the bilateral ovaries was performed to assess blood flow. FINDINGS: The uterus measures 9.8 x 4.2 x 5.2 cm. The uterus is normal in echogenicity. Nabothian cysts are noted in the cervix measuring up to 6 mm in greatest dimension. Endometrium: Normal thickness and appearance. The endometrial measures 9 mm in thickness. Ovaries: The visualized right ovary is within normal limits for songraphic evaluation. There is a 2.3 cm dominant follicle in the right ovary. The left ovary is not visualized. Right Ovary measurements: 3.5 x 3.3 x 2.1 cm No abnormal adnexal mass is seen. No free fluid in the pelvic cul-de-sac. Vascular duplex analysis of the right ovary demonstrates normal blood flow without evidence of ovarian ischemia. US/US pelvis w/ transvaginal IMPRESSION: Normal pelvic ultrasound. No evidence of ovarian ischemia. The left ovary is not visualized. Impression dictated by: Marlon Phoenix M.D. 04/06/2025 1:20 PM Dictation Location: [facility] [address] Electronically authenticated by: [id number] Y Date: 04/06/2025 13:20 Dictated By: Marlon Phoenix M.D. Signed By: 04/06/25 1323 DD/ 1320 TD/TT: Elevator Service Technician: [address] [address] Ultrasound Report Signed Patient: RADHA HAMILTON MR#: [id number] : 2000 Acct:[id number] Age/Sex: 24 / U ADM Date: 04/06/25 Loc: US Attending Dr: Zahida Peter M.D. Ordering Physician: Tyler Peter M.D. Date of Service: 04/06/25 Procedure(s): US pel vis w/ transvaginal Accession Number(s): [id number] cc: Tyler Peter M.D. [address] [address] Patient Name: ANA MARIA HAMILTON MRN: [id number] date: 2000 Sex: U Assigned Patient Location: US Current Patient Location: US Accession/Order Numb er: [id number] Exam Date: 04/06/2025 12:43 Report Date: 04/06/2025 13:20 At the request of: TYLER PETER MD Procedure: US pelvis w/ transvaginal EXAMINATION TYPE: US pelvis w/ transvaginal Grayscale, color scale Doppler, vascular duplex anal ysis of the bilateral ovaries DATE OF EXAM ORDERED : 04/06/2025 1:13 PM HISTORY: PELVIC PAIN R10.2, irregular menses COMPARISON: NONE TECHNIQUE: Realtime Transvaginal and Transabdominal imaging was performed. Transvaginal imaging was utilized to better evaluate the ovaries and the endometrial stripe. Grayscale, color scale Doppler, vascular duplex analysis of the bilateral ova dominick was performed to assess blood flow. FINDINGS: The uterus measures 9.8 x 4.2 x 5.2 cm. The uterus is normal in echogenicity. Nabothian cysts are noted in the cervix measuring up to 6 mm in greatest dimension. Endometrium: Normal thickness and appearance. The endometrial measures 9 mm in thickness. Ovaries: The visuali zed right ovary is within normal limits for songraphic evaluation. There is a 2.3 cm dominant follicle in the right ovary. The left ovary is not visualized. Right Ovary measurements: 3.5 x 3.3 x 2.1 cm No abnormal adnexal mass is seen. No free fluid in the pelvic cul-de-sac. Vascular duplex anal ysis of the right ovary demonstrates normal blood flow without evidence of ovarian ischemia. U S/US pelvis w/ transvaginal IMPRESSION: Normal pelvic ultrasound. No evidence of ovarian ischemia. The left ovary is no t visualized. Impression dictated by: Marlon Phoenix M.D. 04/06/2025 1:20 PM Dictation Location: [place] [address] Electronically authenticated by: [id number] Y Date: 04/06/2025 13:20 Dictated By: Marlon Phoenix M.D. Signed By: 04/06/25 1323 DD/ 1320 TD/TT: Elevator Service Technician: Reason For Referral Reason needs sleep study Diagnosis 1 Snoring (R06.83) Referral Organization [facility] Medicine Referring Provider First Name Tra Referring Provider Last Name Musa Referring Provider [facility]erred Provider Specialty Sleep Medici ne Referral Priority Routine Medications Medication SIG (Take, Route, Frequency, Duration) Notes Start Date End Date Status Escitalopram Oxalate 10 MG Oral for 30 Days Active 27-1 MG 1 tablet Orally Once a day Active Magnesium Glycinate 100 MG as directed Orally Dosage Unknown Active Protonix 40 MG 1 tablet Orally Once a day for 30 days 11/21/2024 Active Abilify 2 MG 1 tablet Orally Once a day for 30 day(s) 11/21/2024 Active Pristiq 50 MG 1 tablet Orally Once a day for 30 days 11/21/2024 Active Meloxicam 15 MG 1 tablet Orally Once a day for 10 days 04/09/2025 Active Vitamin D3 10 MCG (400 UNIT) TAKE TWO CAPSULES BY MOUTH ONCE DAILY Oral for 30 Days Active Social History Tobacco Use: Social History Observation Description Date Details (start date - stop date) Former Smoker NA - NA Tobacco Control (Standard) Question Answer Notes Tobacco use: Former smoker How long has it been since you last smoked? 3-6 months AUDIT-C (Standard) Question Answer Notes Did you have a drink containing alcohol in the p ast year? No Points 0 Interpretation Negative Problems Problem Type SNOMED Code ICD Code Onset Dates Problem Status W/U Status Risk Notes Problem Snoring (98108587) Snoring (R06.83) Active confirmed Problem Abdominal pain (00612592) Abdominal pain (R10.9) Active confirmed Problem Anxiety (18474804) Anxiety (F41.9) Active confirmed Problem Depression (147107476) Depression (F32.9) Active confirmed Problem Well adult (230046819) Well adult (Z00.00) Active confirmed Problem Paresthesia (60497606) Paresthesia (R20.2) Active confirmed Problem Laboratory test result abnormal (351778700) Abnormal laboratory test (R89.9) Active confirmed Problem Pain in pelvis (32452707) Pelvic pain (R10.2) Active confirmed Vital Signs Blood pressure diastolic 66 mm Hg 03/22/2025 Height 62 in 03/22/2025 Blood pressure systolic 102 mm Hg 03/22/2025 Weight 249.0 lbs 03/22/2025 BMI 45.54 kg/m2 03/22/2025 Procedures Procedure Date Ordered Date Performed Result Body Sit e Sleep study - Diagnostic Polysonogram 11/21/2024 N/A Encounters Encounter Location Date Provider Diagnosis [facility] [address] [place] [address] 11/22/2024 Tra Hoy Snoring R06.83 [facility] [address] [place] [address] 11/27/2024 Tra Hoy [facility] [address] [place] [address] 11/28/2024 Tra Hoy Abnormal laboratory test R89.9 [facility] [address] [place] [address] 12/05/2024 Tra Hoy Abnormal laboratory test R89.9 [facility] [address] [place] [address] 04/08/2025 Tra Hoy [facility] [address] [place] [address] 11/21/2024 Tra Hoy Well adult Z00.00 ; Snoring R06.83 and Paresthesia R20.2 [facility] [address] [place] [address] 03/22/2025 Tra Hoy Abdominal pain R10.9 and Pelvic pain R10.2 Assessments Encounter Date Diagnosis (ICD Code) Assessment Notes Treatment Notes Treatment Clinical Notes Section Notes 03/22/2025 Abdominal pain (ICD-10 - R10.9) 03/22/2025 Pelvic pain (ICD-10 - R10.2) 11/22/2024 Snoring (ICD-10 - R06.83) 11/28/2024 Abnormal laboratory test (ICD-10 - R89.9) 12/05/2024 Abnormal laboratory test (ICD-10 - R89.9) 11/21/2024 Well adult (ICD-10 - Z00.00) 11/21/2024 Snoring (ICD-10 - R06.83) 11/21/2024 Paresthesia (ICD-10 - R20.2) Plan Of Treatment Pending Test Test Name Order Date HEMOGLOBIN A1C (GLYCO) 11/21/2024 HEMOGLOBIN A1C (GLYCO) 03/22/2025 IRON, TOTAL 11/21/2024 IRON, TOTAL 03/22/2025 LIPID PANEL (CHOL/TRIG/HDL/LDL) 03/22/20 25 LIPID PANEL (CHOL/TRIG/HDL/LDL) 11/22/19 25 Sleep study - Diagnostic Polysonogram Insulin Level 11/21/2024 Insulin Level 03/22/2025 FSH+LH+Prog+E2 03/22/2025 CBC W/AUTO DIFF 12/05/2024 FSH - PROLACTIN 11/21/2024 CORTISOL AM 11/21/2024 ESTRONE 11/21/2024 GLYCOHEMOGLOBIN A1C 11/28/2024 INSULIN 11/28/2024 PROGESTERONE 11/21/2024 US ABD 03/22/2025 US PELVIS AND TRANSVAG 03/22/2025 THYROID PANEL (T4/TSH/FREE T3) THYROID PANEL (T4/TSH/FREE T3) CMP (COMP MET JONES) w/eGFR CKD-EPI 2024 CMP (COMP MET JONES) w/eGFR CKD-EPI 2024 CBC WITH DIFF 03/22/2025 CBC WITH DIFF 11/21/2024 Insurance Providers Payer Name Payer Address Payer Phone Subscriber Number Group Number Insured Name Patient Relationship to Insured Coverage Start Date Coverage End Date [facility] [address] [place], [place] [id number] Ana Maria Hamilton Self - patient is the insured [employer] [place] [employer] [address] [address] [place] [address] [id number] Ana Maria Hamilton Self - patient is the insured Medical (General) History Medical History History ICD Code Anxiety F41.9 Depression F32.9
--- OUTSIDE RECORDS SUMMARY | 2025-04-13 10:05 | XMS_ITS | Encounter Summary ---
Author Organization [facility] [id number] [address] [place] [address] Care Team Providers Care Casting Coordinator Name Role Phone Ismael Vigil MD Primary Care Provider [phone] Encounter Details Date Type Department Care Team (Late st Contact Info) Description 10/15/2020 Orders Only [facility] [address] [place] [address] Juilette Hayes, [facility] [address] [place], [place] [id number] Social History Tobacco Use Types Packs/Day Years [...] documented as of this encounter Care Teams Casting Coordinator Relationship Specialty Start Date End Date Ismael Vigil MD [address] [place] [address] PCP - General Family Medicine 03/15/25 documented as of this encounter
[2025-04-13 11:39] LABS: Iron 62.0 ug/dL (50.0-170.0)
[2025-04-13 11:46] LABS: Alanine Aminotransferase 33 U/L (14-59); Albumin Globulin Ratio 0.8; Albumin Level 3.5 g/dL (3.4-5.0); Alkaline Phosphatase 67 U/L (46-116); Anion Gap 14.9; Aspartate Amino Transferase 13 U/L (15-37); Blood Urea Nitrogen 10.0 mg/dL (7.0-18.0); Calcium 8.8 mg/dL (8.5-10.1); Carbon Dioxide 25.1 mmol/L (21.0-32.0); Chloride 106 mmol/L (98-107); Cholesterol 172 mg/dL (<=200); Estimated GFR (African America >60 (>=60 mL/min/1.73m^2); Estimated GFR (Non-African Ame >60 (>=60 mL/min/1.73m^2); Free T3 2.63 pg/mL (2.18-3.98); Globulin 4.2 g/dL; Glucose 94 mg/dL (74-106); HDL Cholesterol 51 mg/dL (40-60); Potassium 4.0 mmol/L (3.5-5.1); Sodium 142 mmol/L (136-145); Thyroid Stimulating Hormone 1.254 uIU/mL (0.358-3.740); Total Protein 7.7 g/dL (6.4-8.2); Triglycerides 102 mg/dL (<=150); VLDL CHOLESTEROL 20.4 mg/dL
[2025-04-14 06:38] LABS: FSH 5.6 mIU/mL (.)
== END 2025-04-13 10:04 | disposition home or self-care (01) ==
PROVIDERS: PCP Family Medicine; Visit Provider Family Medicine
DX: R10.9 Unspecified abdominal pain (principal); R10.2 Pelvic and perineal pain; K80.20 Calculus of gallbladder without cholecystitis without obstruction
CPT/HCPCS: 36415; 76705; 80053; 80061; 82670; 83001; 83002; 83036; 83525; 83540; 84144; 84436; 84443; 84481